=== PATIENT | female | born 1970 | race Caucasian/White ===

== ENCOUNTER 2016-08-01 11:36 | Emergency (ER) | payer OTHER ==
[2016-08-01 11:43] VITALS: BP 127/74; PULSE 77; TEMP 97.8; BMI 22.4
--- NOTE | 2016-08-01 12:08 | PDOC ---
History of Present Illness - General Chief Complaint: Injury Stated Complaint: LT ANKLE PAIN Time Seen by Provider: 08/01/16 11:52 History Source: Patient Exam Limitations: No Limitations - History of Present Illness Initial Comments: 08/01/16 12:04 45 yr female twisted left ankle and foot last night on a missed step. no pain meds taken. no previous injury. Occurred: reports: yesterday Severity: Yes: mild Lower Extremity Pain Location: right: foot (right ), ankle Method of Injury: Yes: twisted Lower Ext. Injury Location - Specific Injury Location Ankle: right bone tenderness, right soft tissue tenderness, right pain, right swelling Past History - Past Medical History Allergies/Adverse Reactions: Allergies Allergy/AdvReac Type Severity Reaction Status Date / Time No Known Allergies Allergy Verified 08/01/16 11:43 Home Medications: Ambulatory Orders NK [No Known Home Medication] 08/01/16 Other medical history: LUPUS - Psycho/Social/Smoking Cessation Hx Anxiety: No Suicidal Ideation: No Smoking History: Never smoked Hx Alcohol Use: No Drug/Substance Use Hx: No Substance Use Type: None Review of Systems - Review of Systems Able to Perform ROS?: Yes Is the patient limited [place] proficient: No Constitutional: No: Symptoms Reported HEENTM: No: Symptoms Reported Respiratory: No: Symptoms reported Cardiac (ROS): No: Symptoms Reported ABD/GI: No: Symptoms Reported : No: Symptoms Reported Musculoskeletal: Yes: Symptoms Reported Integumentary: No: Symptoms Reported Neurological: No: Symptoms reported *Physical Exam - Vital Signs Last Vital Signs Temp Pulse Resp BP Pulse Ox 97.8 F 77 20 127/74 99 08/01/16 11:40 08/01/16 11:40 08/01/16 11:40 08/01/16 11:40 08/01/16 11:40 - Physical Exam General Appearance: Yes: Nourished, Appropriately Dressed HEENT: positive: EOMI, WON Extremity: positive: Normal Capillary Refill, Tender (left lateral malleolus tender to touch, positive echymosis ) Integumentary: positive: Normal Color, Dry, Warm Neurologic: positive: Fully Oriented, Alert, Normal Mood/Affect, Normal Response , Motor Strength 5/5 Procedures - Splinting Splint Location: Left: Foot, Ankle Pre-Made Type: aircast Medical Decision Making - Medical Decision Making 08/01/16 12:12 cc: left ankle/foot twisted last night swelling noted pt is ambualtory with no distress will xray to r/o fracture 08/01/16 12:44 xray is preliminary negative will place air cast and crutches follow up with orthopedist *DC/Admit/Observation/Transfer Diagnosis at time of Disposition: Left ankle sprain Qualifiers: Encounter type: initial encounter Involved ligament of ankle: other ligament Qualified Code(s): S93.492A - Sprain of other ligament of left ankle, initial encounter - Discharge Dispostion Disposition: HOME Condition at time of disposition: Improved - Referrals Referrals: Padmini Travis [Primary Care Provider] - Ervin Villeda MD [Staff Physician] - - Patient Instructions Additional Instructions: elevate and apply ice every 2hrs for 20 minutes while awake for the next 2 days use the air cast splint while awake, remove to bathe and sleep use the crutches if you are unable to weight bear without pain take motrin 600mg every 6hrs for pain as needed (advil, ibuprofen) follow with your medical doctor or the orthopedist in one week for follow up no sports or activity until cleared by the orthopedist or your doctor - Post Discharge Activity Work/School Note: Back to Work
[2016-08-01] MEDS ORDERED: IBUPROFEN 600 MG TABLET (FP) PO ONE (12:33)
== END 2016-08-01 12:54 | disposition home or self-care (01) ==
LOC: JERFT 11:36
PROC: 2W3MX1Z Immobilization of Left Lower Extremity using Splint (ICD-10-PCS; principal; 2016-08-01)
DX: S93.492A Sprain of other ligament of left ankle, initial encounter (principal); X50.1XXA Overexertion from prolonged static or awkward postures, initial encounter; Y93.89 Activity, other specified; Y92.89 Other specified places as the place of occurrence of the external cause; Y99.8 Other external cause status
CPT/HCPCS: 29515; 73610-TC-LT; 73630-TC-LT; 84703; 99281-25